=== PATIENT | female | born 1995 | race Caucasian/White ===

== ENCOUNTER 2024-05-06 21:27 | Emergency (ER) | payer OTHER ==
[~2024-05-06] VITALS: Ht 170.2 cm; Wt 68.2 kg
[2024-05-06] MEDS ORDERED: Tdap Vaccine 0.5 ML SYRINGE IM ONE (22:30)
[2024-05-06 23:30] VITALS: BP 101/69
[2024-05-06] MEDS ORDERED: Home Cephalexin 500 MG #2 CAP/PACK PO ONE (23:30)
[2024-05-06] MEDS ORDERED: Cephalexin 500 MG CAP PO ONE (23:30)
== END 2024-05-06 23:32 | disposition home or self-care (01) ==
LOC: ED 21:27
DX: S61.217A Laceration without foreign body of left little finger without damage to nail, initial encounter (principal); W26.0XXA Contact with knife, initial encounter; Y93.G3 Activity, cooking and baking
CPT/HCPCS: 90715